=== PATIENT | male | born 1995 | race Caucasian/White ===

== ENCOUNTER 2020-07-27 18:09 | Emergency (ER) | payer SELFPAY ==
--- NOTE | 2020-07-27 19:13 | RAD REPORT ---
EXAM DESCRIPTION: RAD - Hand Right 3 View - 07/27/2020 7:07 pm CLINICAL HISTORY: SWELLING Pain and swelling COMPARISON: <Comparisons> FINDINGS: Fracture of the shaft of the fifth metacarpal is seen. No dislocation. Mild adjacent soft tissue swelling.
--- NOTE | 2020-07-27 19:40 | ER ---
Nurse's Notes [facility] Name: Alex Velasquez Age: 25 yrs Sex: Male : 1995 Arrival Date: 07/27/2020 Time: 18:16 Bed 13 Private MD: Diagnosis: Displaced fracture of shaft of fifth metacarpal bone, right hand Presentation: 07/27 18:46 Chief complaint: Patient states: Son shut RIGHT hand in car door, swelling noted to jl7 right hand, decreased ROM noted to right ring and pinky finger. Coronavirus screen: Client denies travel out of the [place] in the last 14 days. At this time, the client does not indicate any symptoms associated with coronavirus-19. Ebola Screen: No symptoms or risks identified at this time. Initial Sepsis Screen: Does the patient meet any 2 criteria? No. Patient's initial sepsis screen is negative. Does the patient have a suspected source of infection? No. Patient's initial sepsis screen is negative. Risk Assessment: Do you want to hurt yourself or someone else? Patient reports no desire to harm self or others. Onset of symptoms was July 27, 2020 at 16:45. Care prior to arrival: None. 18:46 Method Of Arrival: Ambulatory [facility] er 18:46 Acuity: [id number] 4 jl7 Triage Assessment: 18:49 General: Appears in no apparent distress. uncomfortable, Behavior is calm, cooperative, jl7 appropriate for age. Pain: Complains of pain in right hand. Musculoskeletal: Swelling present in right hand. Injury Description: Bruise sustained to right hand. Historical: - Allergies: 18:49 No Known Allergies; jl7 - Home Meds: 18:49 None [Active]; jl7 - PMHx: 18:49 None; jl7 - PSHx: 18:49 Appendectomy; jl7 - Immunization history:: Adult Immunizations up to date. - Social history:: Smoking status: Patient reports the use of cigarette tobacco products, smokes one pack cigarettes per day. Screenin:49 Abuse screen: Denies threats or abuse. Nutritional screening: No deficits noted. vg1 Tuberculosis screening: No symptoms or risk factors identified. Fall Risk No fall in past 12 months (0 pts). No secondary diagnosis (0 pts). No IV (0 pts). Ambulatory Aid- None/Bed Rest/Nurse Assist (0 pts). Gait- Normal/Bed Rest/Wheelchair (0 pts) Mental Status- Oriented to own ability (0 pts). Total Abdi Fall Scale indicates No Risk (0-24 pts). Assessment: 19:45 General: Appears in no apparent distress. comfortable, Behavior is calm, cooperative. vg1 Pain: Complains of pain in right hand Pain currently is 6 out of 10 on a pain scale. Pain began 2 hours ago. Neuro: Level of Consciousness is awake, alert, obeys commands, Oriented to person, place, time, situation. Cardiovascular: Patient's skin is warm and dry. Respiratory: Airway is patent Respiratory effort is even, unlabored. GI: No signs and/or symptoms were reported involving the gastrointestinal system. : No signs and/or symptoms were reported regarding the genitourinary system. EENT: No signs and/or symptoms were reported regarding the EENT system. Derm: Skin is intact, is healthy with good turgor. Musculoskeletal: Swelling present in right hand. Vital Signs: 18:46 BP 155 / 103; Pulse 85; Resp 17; Temp 98.5; Pulse Ox 99% ; Weight 145.15 kg; Height 5 jl7 ft. 11 in. (180.34 cm); Pain 4/10; 18:46 Body Mass Index 44.63 (145.15 kg, 180.34 cm) jl7 ED Course: 18:16 Patient arrived in ED. ds1 18:48 Triage completed. jl7 18:49 Arm band placed on right wrist. jl7 18:53 Kimberly Alexander FNP-C is [facility]. kb 18:53 Dilan Uribe MD is Attending Physician. kb 19:06 XRAY Hand RIGHT 3 View In Process Unspecified. EDMS 19:40 Thalia Gardner, ARTHUR is Primary Nurse. vg1 19:50 Patient has correct armband on for positive identification. Bed in low position. vg1 Administered Medications: No medications were administered Outcome: 19:39 Discharge ordered by . kb 19:53 Patient left the ED. mw2 Signatures: Dispatcher [employer] EDMS Kimberly Alexander FNP-C FNP-Ckb Sanford, Demi ds1 Terra Morton RN RN jl7 Shane Ling mw2 Thalia Gardner RN RN vg1
--- NOTE | 2020-07-27 19:40 | EDPHYS ---
Physician Documentation [facility] Name: Alex Velasquez Age: 25 yrs Sex: Male : 1995 Arrival Date: 07/27/2020 Time: 18:16 Bed 13 Private MD: ED Physician Dilan Uribe HPI: 07/27 19:43 This 25 yrs old Male presents to ER via Ambulatory with complaints of Hand kb Swelling, Hand Injury. 19:43 The patient or guardian reports injury, pain, swelling, tenderness. The complaints kb affect the dorsum of right hand. Context: The problem was sustained outdoors, resulted from a crush injury, by a car door. Onset: The symptoms/episode began/occurred today, at 13:00. Modifying factors: The symptoms are alleviated by nothing, the symptoms are aggravated by movement. Associated signs and symptoms: The patient has no apparent associated signs or symptoms. Severity of symptoms: At their worst the symptoms were mild, moderate, in the emergency department the symptoms are unchanged. The patient has not experienced similar symptoms in the past. The patient has not recently seen a physician. Pt reports his hand got shut in a car door at approx 1300 today. States he was ok at first, then pain started when he tried to lift his daughter up. Historical: - Allergies: 18:49 No Known Allergies; jl7 - Home Meds: 18:49 None [Active]; jl7 - PMHx: 18:49 None; jl7 - PSHx: 18:49 Appendectomy; jl7 - Immunization history:: Adult Immunizations up to date. - Social history:: Smoking status: Patient reports the use of cigarette tobacco products, smokes one pack cigarettes per day. ROS: 19:58 Constitutional: Negative for fever, chills, and weight loss. kb 19:58 MS/extremity: Positive for ecchymosis, pain, swelling, tenderness, of the dorsum of right hand. 19:58 All other systems are negative. Exam: 19:58 Constitutional: This is a well developed, well nourished patient who is awake, alert, kb and in no acute distress. Head/Face: Normocephalic, atraumatic. ENT: Moist Mucous membranes Respiratory: Respirations even and unlabored. No increased work of breathing, no retractions or nasal flaring. Skin: Warm, dry with normal turgor. Normal color. Neuro: Awake and alert, GCS 15, oriented to person, place, time, and situation. Moves all extremities. Normal gait. 19:58 Musculoskeletal/extremity: Extremities: grossly normal except: noted in the dorsum of right hand: ecchymosis, pain, swelling, tenderness, ROM: no acute changes, Circulation is intact in all extremities. Sensation intact. Vital Signs: 18:46 BP 155 / 103; Pulse 85; Resp 17; Temp 98.5; Pulse Ox 99% ; Weight 145.15 kg; Height 5 jl7 ft. 11 in. (180.34 cm); Pain 4/10; 18:46 Body Mass Index 44.63 (145.15 kg, 180.34 cm) jl7 Procedures: 19:57 Splinting: Splint applied to right arm using Orthoglass splint, applied by tech. kb Examined by me, post splint application: neurovascular intact, 2+ distal pulses palpable, brisk capillary refill noted, Patient tolerated well. MDM: 19:09 Patient medically screened. kb 19:34 Data reviewed: vital signs, nurses notes. Data interpreted: Pulse oximetry: on room air kb is 99 %. Interpretation: normal. Counseling: I had a detailed discussion with the patient and/or guardian regarding: the historical points, exam findings, and any diagnostic results supporting the discharge/admit diagnosis, radiology results, the need for outpatient follow up, a orthopedic surgeon, to return to the emergency department if symptoms worsen or persist or if there are any questions or concerns that arise at home. 07/27 18:50 Order name: XRAY Hand RIGHT 3 View; Complete Time: 19:15 7 07/27 19:19 Order name: Ulnar Gutter splint beckie Administered Medications: No medications were administered Disposition: 07/27/20 19:39 Discharged to Home. Impression: Displaced fracture of shaft of fifth metacarpal bone, right hand. - Condition is Stable. - Discharge Instructions: Metacarpal Fracture, [id number]. - Prescriptions for Ibuprofen 800 mg Oral Tablet - take 1 tablet by ORAL route every 8 hours As needed take with food; 30 tablet. - Medication Reconciliation Form, Thank You Letter, Antibiotic Education, Prescription Opioid Use form. - Follow up: Emergency Department; When: As needed; Reason: Worsening of condition. Follow up: Private Physician; When: 2 - 3 days; Reason: Recheck today's complaints, Continuance of care, Re-evaluation by your physician. Addendum: 07/29/2020 09:47 Co-signature as Attending Physician, Dilan Uribe MD I agree with the assessment and c stout plan of care. Signatures: Dispatcher [employer] EDFL Benjamin Kimberly, CHIEF LOCK TENDER OPERATOR-C CHIEF LOCK TENDER OPERATOR-Ckb Dilan Uribe MD MD cha Leal, Jahala, RN RN jl7 AnuradhaShane jimenez [facility] Corrections: (The following items were deleted from the chart) 07/27 19:53 19:39 07/27/2020 19:39 Discharged to Home. Impression: Displaced fracture of shaft of mw2 fifth metacarpal bone, right hand. Condition is Stable. Forms are Medication Reconciliation Form, Thank You Letter, Antibiotic Education, Prescription Opioid Use. Follow up: Emergency Department; When: As needed; Reason: Worsening of condition. Follow up: Private Physician; When: 2 - 3 days; Reason: Recheck today's complaints, Continuance of care, Re-evaluation by your physician. kb
[2020-07-27 20:06] VITALS: BP 155/103; TEMP 98.5; O2SAT 99
== END 2020-07-27 19:53 | disposition home or self-care (01) ==
LOC: ER 18:09
DX: S62.326A Displaced fracture of shaft of fifth metacarpal bone, right hand, initial encounter for closed fracture (principal); F17.210 Nicotine dependence, cigarettes, uncomplicated; W23.0XXA Caught, crushed, jammed, or pinched between moving objects, initial encounter
CPT/HCPCS: 99282